=== PATIENT | female | born 1955 | race Caucasian/White ===

== ENCOUNTER → 2024-01-02 15:01 | Outpatient (REF) | payer MEDICARE, SELFPAY | LOC: WDC 15:01 | PROVIDERS: ATTENDING PHYSICIAN Internal Medicine Geriatric Medicine | DX: Z12.31 Encounter for screening mammogram for malignant neoplasm of breast (principal) | CPT/HCPCS: 77063; 77067 ==

== ENCOUNTER → 2024-01-23 13:35 | Outpatient (REF) | payer MEDICARE, SELFPAY | LOC: RAD 13:35 | PROVIDERS: ATTENDING PHYSICIAN Internal Medicine Geriatric Medicine | DX: M85.89 Other specified disorders of bone density and structure, multiple sites (principal) | CPT/HCPCS: 77080 ==